=== PATIENT | male | born 1930 | race Caucasian/White ===

== ENCOUNTER 2016-12-25 10:08 | Observation (INO) | payer OTHER ==
--- NOTE | 2016-12-25 10:38 | DR.GENAD ---
HPI - PCP Primary Care Physician: DR. FOWLER - HPI Comment HPI Comment: PATIENT IS BEING WORKING OUT DOORS AT THE HOME AND SWEATING A LOT. HE IS NOT BEING DRINKING FLUID OR EATING. HE CONTINUE TO GET WEAK. HAD AORTIC VALVE REPLACEMENT 3 MONTHS AGO. FOLLOW INDICATED HEAL FROM THE SURGERY. WHILE IN ED, MILD PAIN ANTERIOR WINNIE WAS REPORTED. PATIEN TAKES ELIQUIS. - Complaint/Symptoms Chief Complaint Doctors Comments: GENERALIZE WEAKNESS AND AND ANOREXIA TIMES 3 WEEKS. Chief Complaint:: PATIENT HAS BEEN WEAK FOR 2 -3 WEEKS. PATIENT IS NOT EATING OR DRINKING LIKE HE SHOULD BE. - Nurses notes reviewed Nurses Notes Review: Yes - Source History Provided: Patient, Family Member - Mode of Arrival Mode of Arrival: Wheelchair - Timing Onset of Chief Complaint: 12/11/16 Came on: Gradually - Duration Duration: Constant Duration: Weeks - Severity Severity: Moderate PMH - PMH Past Medical History: No Past Surgical History: Yes Past Surgical History Comment: AORTICA VALVE REPLACEMENT AROUND 3 MONTHS AGO - Family History History of Family Medical Conditions: Yes Family Medical History: Diabetes Mellitus - Social History Does patient currently use any type of tobacco product: No Have you used tobacco products in the last 12 months: No Type of Tobacco Use: None Does any household member use tobacco: No Alcohol Use: Rarely Do you use any recreational Drugs:: No Lives Where: Home - infectious screening In the last 2 months have you had wt loss of >10#?: NO Have you had fever, night sweats or hemotysis?: No Have you traveled outside the country in the last 6 months?: No Isolation: Standard ROS - Review of Systems Constitutional: Malaise, Weakness, Fatigue, Loss of Appetite, Other (SWEAT A LOT.). negative: Chills, Fever Eyes: No Symptoms Reported. negative: Eye Pain, Discharge ENTM: No Symptoms Reported. negative: Ear Pain, Nose Discharge, Nose Congestion , Throat Pain Respiratoy: Short of Breath. negative: Productive Cough, Non-Productive Cough, Wheezing, Hemoptysis Cardiovascular: Chest Pain. negative: Edema, Palpitations, Syncope Gastrointestinal/Abdominal: No Symptoms Reported. negative: Abdominal Pain, Constipation, Diarrhea, Nausea, Vomiting Genitourinary: No Symptoms Reported. negative: Dysuria, Frequency, Hematuria Neurological: negative: Headache Musculoskeletal: Muscle Pain Integumentary: No Symptoms Reported. negative: Rash, Itching, Bruises, Juandice Hematologic/Lymphatic: negative: Easy Bleeding, Easy Bruising Endocrine: No Symptoms Reported All Other Systems: Reviewed and Negative PE - Vital Signs Vitals: Temperature 97.6 F Pulse Rate 90 Respiratory Rate 20 Blood Pressure 141/67 O2 Sat by Pulse Oximetry 97 - General Limitations: No Limitations General Appearance: Alert - Head Head Exam: Normal Inspection - Eyes Eye exam: Normal Appearance - ENT ENT Exam: Normal External Ear Exam External Ear Exam: Normal External Inspection TM/Canal Exam: Bilateral Normal Nose Exam: Normal Nose Exam Mouth Exam: Normal Inspection Throat Exam: Normal Inspection - Neck Neck Exam: Normal Inspection - Chest Chest Inspection: Symmetric Chest Wall Rise - Respiratory Respiratory Exam: Normal Lung Sounds Bilat Respiratory Exam: Bilateral Clear to Auscultation - Abdominal Exam Abdominal Exam: Normal Bowel Sounds, Soft. negative: Tenderness - Extremities Extremities Exam: Normal Inspection - Back Back Exam: Normal Inspection - Neurologic Neurological Exam: Alert, Oriented X3 - Psychiatric Psychiatric Exam: Normal Affect, Normal Mood - Skin Skin Exam: Normal Color MDM - Additional Information Additional Information Obtained From: Family - Differential Diagnosis Differential Diagnosis: DEHYDRATION, CHEST PAIN, ABNORMAL CARDIAC ENZYMES, GENERALIZE WEAKNESS, [place] Course - Treatment Treatment: SEE ORDERS. - Consultation Consultation Comments: DISCUSS PATIENT WITH DR. FAUST. HE WILL ADMIT PATIENT. - Education/Counseling Education/Counseling: Patient, Family, Education Educated On: Diagnosis ROR - Labs Reviewed Laboratory Results Reviewed?: Yes Result Diagrams: 12/26/16 02:25 12/26/16 02:25 Laboratory: WBC 8.3 X10^3/uL (3.6-10.0) 12/25/16 10:50 RBC 3.97 X10^6/uL (4.7-6.0) L 12/25/16 10:50 Hgb 11.3 g/dL (13.5-18.0) L 12/25/16 10:50 Hct 34.0 % (42.0-54.0) L 12/25/16 10:50 MCV 85.5 fL (80.0-100.0) 12/25/16 10:50 MCH 28.5 pg (27.0-34.0) 12/25/16 10:50 MCHC 33.4 g/dL (33.0-35.0) 12/25/16 10:50 RDW 18.6 % (11.6-16.5) H 12/25/16 10:50 Plt Count 142 X10^3/uL (150.0-450.0) L 12/25/16 10:50 MPV 8.6 fL (7.4-11.0) 12/25/16 10:50 Neut % 77.4 % (42.0-75.0) H 12/25/16 10:50 Lymph % 15.6 % (21.0-51.0) L 12/25/16 10:50 [place] % 5.0 % (0.0-13.0) 12/25/16 10:50 Eos % 0.9 % (0.9-2.9) 12/25/16 10:50 Baso % 1.1 % (0.2-1.0) H 12/25/16 10:50 Neut # 6.4 x10^3/uL (2.2-4.8) H 12/25/16 10:50 Lymph # 1.3 X10^3/uL (1.3-2.9) 12/25/16 10:50 [place] # 0.4 x10^3/uL (0.3-0.8) 12/25/16 10:50 Eos # 0.1 x10^3/uL (0.0-0.2) 12/25/16 10:50 Baso # 0.1 X10^3/uL (0.0-0.1) 12/25/16 10:50 Absolute Nucleated RBC 0.0 /100WBC 12/25/16 10:50 Sodium 139 mmol/L (136-145) 12/25/16 10:50 Corrected Sodium 140 mmol/L (136-145) 12/25/16 10:50 Potassium 3.8 mmol/L (3.5-5.1) 12/25/16 10:50 Chloride 103 mmol/L (98-107) 12/25/16 10:50 Carbon Dioxide 26.6 mmol/L (21-32) 12/25/16 10:50 BUN 32 mg/dL (7-18) H 12/25/16 10:50 Creatinine 1.60 mg/dL (0.70-1.30) H 12/25/16 10:50 Est GFR (MDRD) Af Amer 53 (>60) L 12/25/16 10:50 Est GFR (MDRD) Non-Af 44 (>60) L 12/25/16 10:50 Glucose 141 mg/dL (65-99) H 12/25/16 10:50 Calcium 8.6 mg/dL (8.5-10.1) 12/25/16 10:50 Corrected Calcium TNP 12/25/16 10:50 Total Bilirubin 0.70 mg/dL (0.2-1.0) 12/25/16 10:50 AST 23 Units/L (15-37) 12/25/16 10:50 ALT 24 Units/L (12-78) 12/25/16 10:50 Alkaline Phosphatase 75 Units/L (46-116) 12/25/16 10:50 Creatine Kinase 71 Units/L (39-308) 12/25/16 10:50 CK-MB (CK-2) 2.2 ng/mL (0-4.0) 12/25/16 10:50 CK/CKMB % Calc 3.1 % (<4) 12/25/16 10:50 Troponin I 0.09 ng/mL (0-1.5) 12/25/16 10:50 B-Natriuretic Peptide 208 pg/mL (0-79) H 12/25/16 10:50 Total Protein 6.3 g/dL (6.4-8.2) L 12/25/16 10:50 Albumin 3.5 g/dL (3.4-5.0) 12/25/16 10:50 Globulin 2.8 g/dL (2.5-4.5) 12/25/16 10:50 Albumin/Globulin Ratio 1.3 Ratio (1.1-2.1) 12/25/16 10:50 Specimen Type Clean catch urine 12/25/16 12:13 Urine Color Yellow (YELLOW) 12/25/16 12:13 Urine Appearance Clear (CLEAR) 12/25/16 12:13 Urine pH 6.5 (5.0 - 8.0) 12/25/16 12:13 Ur Specific [place] 1.010 (1.000-1.030) 12/25/16 12:13 Urine Protein Negative (NEGATIVE) 12/25/16 12:13 Urine Glucose (UA) Negative (NEGATIVE) 12/25/16 12:13 Urine Ketones Negative (NEGATIVE) 12/25/16 12:13 Urine Occult Blood Negative (NEGATIVE) 12/25/16 12:13 Urine Nitrite Negative (NEGATIVE) 12/25/16 12:13 Urine Bilirubin Negative (NEGATIVE) 12/25/16 12:13 Urine Urobilinogen Normal (NORMAL) 12/25/16 12:13 Ur Leukocyte Esterase Negative (NEGATIVE) 12/25/16 12:13 Urine RBC 0 /HPF (NEGATIVE) 12/25/16 12:13 Urine WBC 0 /HPF (NEGATIVE) 12/25/16 12:13 Ur Squamous Epith Cells Negative /HPF (NEGATIVE) 12/25/16 12:13 Urine Bacteria Negative /HPF (NEGATIVE) 12/25/16 12:13 Ur Culture Indicated? Yes/culture set up 12/25/16 12:13 Monoscreen Negative (NEGATIVE) 12/25/16 10:50 Streptococcus Screen Negative (NEGATIVE) 12/25/16 11:05 - XRAY XRAY Interpreted by: Radiologist XRAY Findings: REPORT DISCUSS WITH PATIENT. - EKG Rhythm: NSR (EKG NOTED) - Diagnosis Discharge Problem: Dehydration, Abnormal cardiac enzyme level Chest pain Qualifiers: Chest pain type: intercostal pain Qualified Code(s): R07.82 - Intercostal pain - Discharge Plan Disposition: 09 ADMITTED INPATIENT Condition: Stable - Follow ups/Referrals - Instructions
[2016-12-25 11:01] LABS: BASOPHILS # (AUTO) 0.1 X10^3/uL (0.0-0.1); BASOPHILS % (AUTO) 1.1 % (0.2-1.0); EOSINOPHILS # (AUTO) 0.1 x10^3/uL (0.0-0.2); EOSINOPHILS % (AUTO) 0.9 % (0.9-2.9); HEMOGLOBIN 11.3 g/dL (13.5-18.0); LYMPHOCYTES # (AUTO) 1.3 X10^3/uL (1.3-2.9); LYMPHOCYTES % (AUTO) 15.6 % (21.0-51.0); MEAN CORPUSCULAR HEMOGLOBIN 28.5 pg (27.0-34.0); MEAN CORPUSCULAR HGB CONC 33.4 g/dL (33.0-35.0); MEAN CORPUSCULAR VOLUME 85.5 fL (80.0-100.0); MEAN PLATELET VOLUME 8.6 fL (7.4-11.0); MONOCYTES # (AUTO) 0.4 x10^3/uL (0.3-0.8); NEUTROPHILS # (AUTO) 6.4 x10^3/uL (2.2-4.8); NEUTROPHILS % (AUTO) 77.4 % (42.0-75.0); PLATELET COUNT 142 X10^3/uL (150.0-450.0); RED BLOOD COUNT 3.97 X10^6/uL (4.7-6.0); RED CELL DISTRIBUTION WIDTH 18.6 % (11.6-16.5); WHITE BLOOD COUNT 8.3 X10^3/uL (3.6-10.0)
[2016-12-25 11:19] LABS: B-TYPE NATRIURETIC PEPTIDE 208 pg/mL (0-79)
[2016-12-25 11:23] LABS: BLOOD UREA NITROGEN 32 mg/dL (7-18); CALCIUM 8.6 mg/dL (8.5-10.1); CARBON DIOXIDE 26.6 mmol/L (21-32); CHLORIDE 103 mmol/L (98-107); COR NA(FOR HYPERGLY) 140 mmol/L (136-145); GLUCOSE 141 mg/dL (65-99); SODIUM 139 mmol/L (136-145); TROPONIN I 0.09 ng/mL (0-1.5); eGFR BLACK RACES 53 (>60); eGFR NON BLACK RACES 44 (>60)
[2016-12-25 11:29] LABS: ALANINE AMINOTRANSFERASE 24 Units/L (12-78); ALBUMIN 3.5 g/dL (3.4-5.0); ALKALINE PHOSPHATASE 75 Units/L (46-116); ASPARTATE AMINO TRANSFERASE 23 Units/L (15-37); CKMB % 3.1 % (<4); CREATINE KINASE 71 Units/L (39-308); CREATINE KINASE MB 2.2 ng/mL (0-4.0); TOTAL PROTEIN 6.3 g/dL (6.4-8.2)
[2016-12-25 11:33] LABS: MONOTEST NEGATIVE (NEGATIVE)
[2016-12-25] MEDS: NS 1000 ML 1,000 ML IV SCH ×2 (11:46→20:43)
[2016-12-25 12:19] LABS: BILIRUBIN,URINE NEGATIVE (NEGATIVE); BLOOD/HEMOGLOBIN,URINE NEGATIVE (NEGATIVE); GLUCOSE, URINE NEGATIVE (NEGATIVE); KETONES,URINE NEGATIVE (NEGATIVE); LEUKOCYTE ESTERASE ,URINE NEGATIVE (NEGATIVE); NITRITES,URINE NEGATIVE (NEGATIVE); PH,URINE 6.5 (5.0 - 8.0); PROTEIN,URINE NEGATIVE (NEGATIVE); UROBILINOGEN,URINE NORMAL (NORMAL)
[2016-12-25 12:22] LABS: APPEARANCE,URINE CLEAR (CLEAR); COLOR,URINE YELLOW (YELLOW); RBC,URINE 0 /HPF (NEGATIVE)
[2016-12-25 12:23] LABS: BACTERIA,URINE NEGATIVE /HPF (NEGATIVE); SQUAMOUS EPITHELIAL CELL,UR NEGATIVE /HPF (NEGATIVE)
[2016-12-25 15:00] LABS: CKMB % 3.1 % (<4); CREATINE KINASE MB 2.2 ng/mL (0-4.0); TROPONIN I 0.09 ng/mL (0-1.5)
--- NOTE | 2016-12-25 15:25 | RAD ---
AP Chest Indication: Weakness Comparison: None available Findings: The trachea is midline. The cardiac silhouette is unremarkable. Patient reports a previous aortic v alve replacement, however, the valve has orientation suggesting mitral valve replacement and clinica l correlation is needed. 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 There is rhona vation left hemidiaphragm with blunting of left costophrenic sulcus suggesting new chronic scarring. No dense airspace consolidation, interstitial edema or pneumothorax.. The bony thorax is unremarka ble. IMPRESSION: 1. No acute cardiopulmonary abnormality. Reported By:
[2016-12-25] MEDS: RESTORIL CAP 15 MG PO PRN (20:43)
[2016-12-25 20:58] LABS: CKMB % 2.6 % (<4); CREATINE KINASE MB 1.4 ng/mL (0-4.0); TROPONIN I 0.11 ng/mL (0-1.5)
[2016-12-26 02:56] LABS: BASOPHILS # (AUTO) 0.1 X10^3/uL (0.0-0.1); BASOPHILS % (AUTO) 0.9 % (0.2-1.0); EOSINOPHILS % (AUTO) 0.6 % (0.9-2.9); HEMATOCRIT 31.8 % (42.0-54.0); HEMOGLOBIN 10.7 g/dL (13.5-18.0); LYMPHOCYTES # (AUTO) 1.6 X10^3/uL (1.3-2.9); LYMPHOCYTES % (AUTO) 24.7 % (21.0-51.0); MEAN CORPUSCULAR HEMOGLOBIN 28.5 pg (27.0-34.0); MEAN CORPUSCULAR HGB CONC 33.6 g/dL (33.0-35.0); MEAN CORPUSCULAR VOLUME 84.8 fL (80.0-100.0); MEAN PLATELET VOLUME 8.6 fL (7.4-11.0); MONOCYTES # (AUTO) 0.4 x10^3/uL (0.3-0.8); MONOCYTES % (AUTO) 5.9 % (0.0-13.0); NEUTROPHILS # (AUTO) 4.4 x10^3/uL (2.2-4.8); NEUTROPHILS % (AUTO) 67.9 % (42.0-75.0); PLATELET COUNT 141 X10^3/uL (150.0-450.0); RED BLOOD COUNT 3.75 X10^6/uL (4.7-6.0); RED CELL DISTRIBUTION WIDTH 18.2 % (11.6-16.5); WHITE BLOOD COUNT 6.4 X10^3/uL (3.6-10.0)
[2016-12-26 03:11] LABS: CKMB % 2.6 % (<4); CREATINE KINASE MB 1.4 ng/mL (0-4.0); TROPONIN I 0.1 ng/mL (0-1.5)
[2016-12-26 03:13] LABS: ALANINE AMINOTRANSFERASE 21 Units/L (12-78); ALKALINE PHOSPHATASE 62 Units/L (46-116); ASPARTATE AMINO TRANSFERASE 20 Units/L (15-37); BLOOD UREA NITROGEN 26 mg/dL (7-18); CALCIUM 8.4 mg/dL (8.5-10.1); CARBON DIOXIDE 26.6 mmol/L (21-32); CHLORIDE 107 mmol/L (98-107); COR CA(FOR HYPOALB) 9.2 mg/dL (8.5-10.1); CREATININE 1.26 mg/dL (0.70-1.30); GLUCOSE 88 mg/dL (65-99); SODIUM 141 mmol/L (136-145); TOTAL PROTEIN 5.4 g/dL (6.4-8.2); eGFR BLACK RACES > 60 (>60); eGFR NON BLACK RACES 58 (>60)
[2016-12-26] MEDS: NS 1000 ML 1,000 ML IV SCH ×2 (05:48→13:11)
[2016-12-26] MEDS ORDERED: NS 1000 ML 1,000 ML IV SCH (15:00)
[2016-12-26 20:24] LABS: CREATININE 1.26 mg/dL (0.70-1.30); VANCOMYCIN,TROUGH < 2.0 ug/mL (15-20)
[2016-12-26] MEDS ORDERED: ZOCOR TAB 40 MG PO SCH (21:00)
[2016-12-26] MEDS ORDERED: FLOMAX PO SCH (21:00)
[2016-12-26] MEDS ORDERED: PREDNISONE TAB 5 MG PO SCH (21:00)
[2016-12-26] MEDS ORDERED: NEURONTIN CAP 300 MG PO SCH (21:00)
[2016-12-26] MEDS: ELIQUIS PO SCH (21:47)
[2016-12-26] MEDS: RESTORIL CAP 15 MG PO PRN (21:49)
[2016-12-27 06:02] LABS: ALANINE AMINOTRANSFERASE 19 Units/L (12-78); ALKALINE PHOSPHATASE 63 Units/L (46-116); ASPARTATE AMINO TRANSFERASE 21 Units/L (15-37); BLOOD UREA NITROGEN 17 mg/dL (7-18); CALCIUM 8.7 mg/dL (8.5-10.1); CARBON DIOXIDE 27.2 mmol/L (21-32); CHLORIDE 106 mmol/L (98-107); COR CA(FOR HYPOALB) 9.5 mg/dL (8.5-10.1); COR NA(FOR HYPERGLY) 139 mmol/L (136-145); CREATININE 1.24 mg/dL (0.70-1.30); GLUCOSE 115 mg/dL (65-99); SODIUM 139 mmol/L (136-145); TOTAL PROTEIN 5.9 g/dL (6.4-8.2); eGFR BLACK RACES > 60 (>60); eGFR NON BLACK RACES 59 (>60)
[2016-12-27 06:11] LABS: BASOPHILS # (AUTO) 0.1 X10^3/uL (0.0-0.1); EOSINOPHILS % (AUTO) 0.5 % (0.9-2.9); HEMATOCRIT 31.7 % (42.0-54.0); HEMOGLOBIN 10.8 g/dL (13.5-18.0); LYMPHOCYTES # (AUTO) 0.9 X10^3/uL (1.3-2.9); LYMPHOCYTES % (AUTO) 15.2 % (21.0-51.0); MEAN CORPUSCULAR HEMOGLOBIN 28.8 pg (27.0-34.0); MEAN CORPUSCULAR HGB CONC 34.3 g/dL (33.0-35.0); MEAN CORPUSCULAR VOLUME 84.1 fL (80.0-100.0); MEAN PLATELET VOLUME 8.5 fL (7.4-11.0); MONOCYTES # (AUTO) 0.2 x10^3/uL (0.3-0.8); NEUTROPHILS # (AUTO) 4.8 x10^3/uL (2.2-4.8); NEUTROPHILS % (AUTO) 79.3 % (42.0-75.0); PLATELET COUNT 142 X10^3/uL (150.0-450.0); RED BLOOD COUNT 3.77 X10^6/uL (4.7-6.0)
[2016-12-27] MEDS: ELIQUIS PO SCH (08:30)
[2016-12-27 10:03] VITALS: BMI 25.9
[2016-12-27] MEDS ORDERED: ELIQUIS PO SCH (12:00)
[2016-12-27 13:58] VITALS: BP 103/54
[2016-12-27] MEDS ORDERED: LOVASTATIN PO SCH (21:00)
[2016-12-27] MEDS ORDERED: FLOMAX PO SCH (21:00)
[2016-12-27] MEDS ORDERED: PREDNISONE TAB 5 MG PO SCH (21:00)
[2016-12-27] MEDS ORDERED: NEURONTIN CAP 300 MG PO SCH (21:00)
--- NOTE | 2017-01-05 22:55 | DR.H&P ---
H&P - History & Physical for Day of: H&P Date: 12/25/16 - Chief Complaint Chief Complaint: Weakness and loss of appetite - Allergies Allergies/Adverse Reactions: Allergies Allergy/AdvReac Type Severity Reaction Status Date / Time No Known Drug Allergies Allergy Verified 12/25/16 10:09 - History of Present Illness History of Present Illness: THE PATIENT PRESENTS TO THE ED AFTER WORKING OUT DOORS AT THE HOME AND SWEATING A LOT. HE IS NOT BEING DRINKING FLUID OR EATING. HE CONTINUE TO GET WEAK. HAD AORTIC VALVE REPLACEMENT 3 MONTHS AGO. FOLLOW-UP INDICATED HEAL FROM SURGERY. WHILE IN ED, PATIENT DID COMPLAIN OF MILD PAIN ANTERIOR CHEST. PATIENT WAS ADMITTED FOR FURTHER EVALUATION. - Past Medical History Past Medical History: Coronary Artery Disease - Past Surgical History Surgical History: CABG/Valve Surgery, Ortho Surgery, Other - Family History Family Medical History: Diabetes Mellitus - Social History Does patient currently use any type of tobacco product: No Have you used tobacco products in the last 12 months: No Type of Tobacco Use: None Does any household member use tobacco: No Alcohol Use: Rarely Drug Use: None - Medications Home Medications: Apixaban [Eliquis] 1 tab PO BID 12/25/16 [History Confirmed 12/26/16] Gabapentin 1 cap PO HS 12/26/16 [History Confirmed 12/26/16] Lovastatin 2 tab PO HS 12/26/16 [History Confirmed 12/26/16] Prednisone 1.5 tab PO HS 12/26/16 [History Confirmed 12/26/16] Tamsulosin HCl [FLOMAX (GENERIC) 0.4 MG *] 1 cap PO HS 12/26/16 [History Confirmed 12/26/16] - Review of Systems Constitutional: Weakness, Malaise Eyes: No Symptoms Reported ENT: No Symptoms Reported Respiratory: No Symptoms Reported Cardiovascular: Chest Pain, Light Headedness Gastrointestinal: No Symptoms Reported Genitourinary: No Symptoms Reported Musculoskeletal: No Symptoms Reported Skin: No Symptoms Reported Neurological: No Symptoms Reported - Physical Exam Vital Signs: Temperature 98.3 F Pulse Rate [Left Brachial] 89 Respiratory Rate 20 Blood Pressure [Right Arm] 103/54 Blood Pressure [Left Arm] 149/79 O2 Sat by Pulse Oximetry 97 Oriented: Normal Eyes: Normal Ear: Normal Nose: Normal Throat: Normal Respiratory: Clear Throughout Cardiovascular: Normal : Normal Auscultation: Bowel Sounds: Normal Palpation: Normal Tenderness: Normal Skin: Normal Musculoskeletal: Normal Psychiatric: Normal Mood Description: Calm Affect: Normal Speech Pattern: Clear - Assessment/Plan (1) Chest pain Qualifiers: Chest pain type: intercostal pain Ischemic chest pain type: I Qualified Code(s): R07.82 - Intercostal pain Status: Acute Plan: iv fLUIDS, MONITOR LABS (2) Dehydration Status: Acute Plan: IV FLUIDS, MONITOR LABS
--- NOTE | 2017-01-05 22:59 | PCM.DCPLAN ---
Discharge Summary - Admission Date Date of Admission: 12/25/16 - Discharge Date Discharge Date: 12/27/16 - Admission Diagnoses (1) Chest pain Status: Acute (2) Dehydration Status: Acute - Discharge Diagnoses Discharge Diagnosis: SAME ADMISSION DIAGNOSIS INCLUDING VALVE REPLACEMENT - Discharge Medications Discharge Medications: Apixaban [Eliquis] 1 tab PO BID 12/25/16 [History] Gabapentin 1 cap PO HS 12/26/16 [History] Lovastatin 2 tab PO HS 12/26/16 [History] Prednisone 1.5 tab PO HS 12/26/16 [History] Tamsulosin HCl [FLOMAX (GENERIC) 0.4 MG *] 1 cap PO HS 12/26/16 [History] - Hospital Course Vital Signs: Temperature 98.3 F Pulse Rate [Left Brachial] 89 Respiratory Rate 20 Blood Pressure [Right Arm] 103/54 Blood Pressure [Left Arm] 149/79 O2 Sat by Pulse Oximetry 97 Latest Lab Results: Laboratory Last Values WBC 6.0 X10^3/uL (3.6-10.0) 12/27/16 04:25 RBC 3.77 X10^6/uL (4.7-6.0) L 12/27/16 04:25 Hgb 10.8 g/dL (13.5-18.0) L 12/27/16 04:25 Hct 31.7 % (42.0-54.0) L 12/27/16 04:25 MCV 84.1 fL (80.0-100.0) 12/27/16 04:25 MCH 28.8 pg (27.0-34.0) 12/27/16 04:25 MCHC 34.3 g/dL (33.0-35.0) 12/27/16 04:25 RDW 18.0 % (11.6-16.5) H 12/27/16 04:25 Plt Count 142 X10^3/uL (150.0-450.0) L 12/27/16 04:25 MPV 8.5 fL (7.4-11.0) 12/27/16 04:25 Neut % 79.3 % (42.0-75.0) H 12/27/16 04:25 Lymph % 15.2 % (21.0-51.0) L 12/27/16 04:25 [place] % 4.0 % (0.0-13.0) 12/27/16 04:25 Eos % 0.5 % (0.9-2.9) L 12/27/16 04:25 Baso % 1.0 % (0.2-1.0) 12/27/16 04:25 Neut # 4.8 x10^3/uL (2.2-4.8) 12/27/16 04:25 Lymph # 0.9 X10^3/uL (1.3-2.9) L 12/27/16 04:25 [place] # 0.2 x10^3/uL (0.3-0.8) L 12/27/16 04:25 Eos # 0.0 x10^3/uL (0.0-0.2) 12/27/16 04:25 Baso # 0.1 X10^3/uL (0.0-0.1) 12/27/16 04:25 Absolute Nucleated RBC 0.1 /100WBC 12/27/16 04:25 Sodium 139 mmol/L (136-145) 12/27/16 04:25 Corrected Sodium 139 mmol/L (136-145) 12/27/16 04:25 Potassium 4.5 mmol/L (3.5-5.1) 12/27/16 04:25 Chloride 106 mmol/L (98-107) 12/27/16 04:25 Carbon Dioxide 27.2 mmol/L (21-32) 12/27/16 04:25 BUN 17 mg/dL (7-18) 12/27/16 04:25 Creatinine 1.24 mg/dL (0.70-1.30) 12/27/16 04:25 Est GFR (MDRD) Af Amer > 60 (>60) 12/27/16 04:25 Est GFR (MDRD) Non-Af 59 (>60) 12/27/16 04:25 Glucose 115 mg/dL (65-99) H 12/27/16 04:25 Calcium 8.7 mg/dL (8.5-10.1) 12/27/16 04:25 Corrected Calcium 9.5 mg/dL (8.5-10.1) 12/27/16 04:25 Total Bilirubin 0.60 mg/dL (0.2-1.0) 12/27/16 04:25 AST 21 Units/L (15-37) 12/27/16 04:25 ALT 19 Units/L (12-78) 12/27/16 04:25 Alkaline Phosphatase 63 Units/L (46-116) 12/27/16 04:25 Creatine Kinase 53 Units/L (39-308) 12/26/16 02:25 CK-MB (CK-2) 1.4 ng/mL (0-4.0) 12/26/16 02:25 CK/CKMB % Calc 2.6 % (<4) 12/26/16 02:25 Troponin I 0.10 ng/mL (0-1.5) 12/26/16 02:25 B-Natriuretic Peptide 208 pg/mL (0-79) H 12/25/16 10:50 Total Protein 5.9 g/dL (6.4-8.2) L 12/27/16 04:25 Albumin 3.0 g/dL (3.4-5.0) L 12/27/16 04:25 Globulin 2.9 g/dL (2.5-4.5) 12/27/16 04:25 Albumin/Globulin Ratio 1.0 Ratio (1.1-2.1) L 12/27/16 04:25 Specimen Type Clean catch urine 12/25/16 12:13 Urine Color Yellow (YELLOW) 12/25/16 12:13 Urine Appearance Clear (CLEAR) 12/25/16 12:13 Urine pH 6.5 (5.0 - 8.0) 12/25/16 12:13 Ur Specific [place] 1.010 (1.000-1.030) 12/25/16 12:13 Urine Protein Negative (NEGATIVE) 12/25/16 12:13 Urine Glucose (UA) Negative (NEGATIVE) 12/25/16 12:13 Urine Ketones Negative (NEGATIVE) 12/25/16 12:13 Urine Occult Blood Negative (NEGATIVE) 12/25/16 12:13 Urine Nitrite Negative (NEGATIVE) 12/25/16 12:13 Urine Bilirubin Negative (NEGATIVE) 12/25/16 12:13 Urine Urobilinogen Normal (NORMAL) 12/25/16 12:13 Ur Leukocyte Esterase Negative (NEGATIVE) 12/25/16 12:13 Urine RBC 0 /HPF (NEGATIVE) 12/25/16 12:13 Urine WBC 0 /HPF (NEGATIVE) 12/25/16 12:13 Ur Squamous Epith Cells Negative /HPF (NEGATIVE) 12/25/16 12:13 Urine Bacteria Negative /HPF (NEGATIVE) 12/25/16 12:13 Ur Culture Indicated? No/not indicated 12/25/16 12:13 Vancomycin Trough < 2.0 ug/mL (15-20) L 12/26/16 20:00 Monoscreen Negative (NEGATIVE) 12/25/16 10:50 Streptococcus Screen Negative (NEGATIVE) 12/25/16 11:05 Hospital Course: THE PATIENT PRESENTS TO THE ED AFTER WORKING OUT DOORS AT THE HOME AND SWEATING A LOT. HE IS NOT BEING DRINKING FLUID OR EATING. HE CONTINUE TO GET WEAK. HAD AORTIC VALVE REPLACEMENT 3 MONTHS AGO. FOLLOW-UP INDICATED HEAL FROM SURGERY. WHILE IN ED, PATIENT DID COMPLAIN OF MILD PAIN ANTERIOR CHEST. PATIENT WAS ADMITTED FOR FURTHER EVALUATION. PATIENT DID RECEIVE GENTLE HYDRATIONS, LABS WERE MONITORED WITH NO ACUTE FINDINGS. PATIENT SYMPTOMS DID IMPROVE AND HE WAS DISCHARGED HOME TO BE FOLLOWED ON AN OP BASIS. - Discharge Plan Disposition: 01 HOME, SELF-CARE Condition: Stable - Follow ups/Referrals Follow ups/Referrals: NISH FOWLER [Primary Care Provider] - 3 days - Instructions Instructions: Fatigue, Angina Pectoris, [id number]
== END 2016-12-27 14:15 | disposition home or self-care (01) ==
LOC: ER 10:27 → MED/SURG 15:10
PROVIDERS: ADMIT Internal Medicine; ATTEND Internal Medicine
DX: R07.89 Other chest pain (principal); E86.0 Dehydration; R94.31 Abnormal electrocardiogram [ECG] [EKG]; R53.1 Weakness; R07.82 Intercostal pain; R94.30 Abnormal result of cardiovascular function study, unspecified
CPT/HCPCS: 36415; 71010; 80053; 80202; 81001; 82550; 82553; 82565; 83880; 84484; 85025; 86308; 87070; 87075; 87077; 87186; 87205; 87880; 93005; 93010; 94760; 96365; 96367; 99217; 99218; 99284; A4222; G8978; G8979; G0378; J7506